=== PATIENT | male | born 1980 | race Caucasian/White ===

== ENCOUNTER 2017-03-29 15:45 | Emergency (ER) | payer MEDICAID ==
[2017-03-29 15:52] VITALS: BP 156/82
[2017-03-29] MEDS ORDERED: ONDANSETRON 4 MG TAB.RAPDIS PO ONE (17:17)
[2017-03-29] MEDS ORDERED: MORPHINE SULFATE 10 MG/ML INJ IM ONE (17:17)
--- NOTE | 2017-03-29 17:35 | ER Document Report ---
ED Neck/Back Problem - General Chief Complaint: Low Back Pain Stated Complaint: BACK PAIN Time Seen by Provider: 03/29/17 17:09 Notes: 36 yo healthy male c/o mid back pain x 1 week. no trauma. no radiculopathy or paresthesias. no bowel/bladder change. no fever. no recent injections or tattoos. no hx/o cancer. pt does c/o mild testicular pain since back pain started, but no urinary difficulty TRAVEL OUTSIDE OF THE [place] IN LAST 30 DAYS: No - HPI Patient complains to provider of: No: Injury Onset: Last week Timing: Constant Quality of pain: Sharp Pain Level: 5 Recent injury: No Associated symptoms: denies: Fever, Numbness/tingling, Radiation to arm, Radiation to chest, Radiation to leg, Unable to urinate Exacerbated by: Movement of trunk Relieved by: Nothing Similar symptoms previously: No - Related Data Allergies/Adverse Reactions: No Known Allergies Allergy (Verified 03/29/17 15:48) Past Medical History - General Information source: Patient - Social History Smoking Status: Current Every Day Smoker Chew tobacco use (# tins/day): No Frequency of alcohol use: None Drug Abuse: None Lives with: Family Family History: None Patient has suicidal ideation: No Patient has homicidal ideation: No - Medical History Medical History: Negative Renal/ Medical History: Denies: Hx Peritoneal Dialysis Surgical Hx: Negative - Immunizations Hx Diphtheria, Pertussis, Tetanus Vaccination: Yes Review of Systems - Review of Systems Constitutional: No symptoms reported EENT: No symptoms reported Cardiovascular: No symptoms reported Respiratory: No symptoms reported Gastrointestinal: No symptoms reported Genitourinary: No symptoms reported Male Genitourinary: No symptoms reported Musculoskeletal: Back pain Skin: No symptoms reported Hematologic/Lymphatic: No symptoms reported Neurological/Psychological: No symptoms reported Physical Exam - Vital signs Vitals: Temp Pulse Resp BP Pulse Ox 97.8 F 87 18 156/82 H 98 03/29/17 15:51 03/29/17 15:51 03/29/17 15:51 03/29/17 15:51 03/29/17 15:51 Interpretation: Normal - General General appearance: Appears well, Alert In distress: None - HEENT Head: Normocephalic, Atraumatic Eyes: Normal Pupils: PERRL - Respiratory Respiratory status: No respiratory distress Chest status: Nontender Breath sounds: Normal Chest palpation: Normal - Cardiovascular Rhythm: Regular Heart sounds: Normal auscultation Murmur: No - Abdominal Inspection: Normal Distension: No distension Bowel sounds: Normal Tenderness: Nontender Organomegaly: No organomegaly - Genitourinary Inspection: Normal Tenderness: Testicle tender, Epididymis tender - mild - Back Back: Tender - mid thoracic spinal and paraspinal tenderness. neg SLT, neg heel /toe - Extremities General upper extremity: Normal inspection, Nontender, Normal color, Normal ROM , Normal temperature General lower extremity: Normal inspection, Nontender, Normal color, Normal ROM , Normal temperature, Normal weight bearing. No: Mac's sign - Neurological Neuro grossly intact: Yes Cognition: Normal Orientation: AAOx4 [place] Coma Scale Eye Opening: Spontaneous [place] Coma Scale Verbal: Oriented Jamie Coma Scale Motor: Obeys Commands Jamie Coma Scale Total: 15 Speech: Normal Motor strength normal: LUE, RUE, LLE, RLE Sensory: Normal - Psychological Associated symptoms: Normal affect, Normal mood - Skin Skin Temperature: Warm Skin Moisture: Dry Skin Color: Normal Course - Re-evaluation Re-evalutation: 03/29/17 17:38 low suspicion for cuada equina or epidural abscess. discussed with Dr Sanchez, agrees pt has low risk profile and MRI not emergently indicated due to testicular discomfort, i will ultrasound scrotum and check urinalysis. 03/29/17 18:50 urinalysis negative. feeling better after medication. walks without difficulty 03/29/17 18:51 testicular US showing left hydrocele. results reviewed with patient. will DC home with pain meds and out patient follow up with primary care. discussed s/s to return to ER. pt agreeable with plan and stable for discharge - Vital Signs Vital signs: Temp Pulse Resp BP Pulse Ox 97.8 F 87 18 156/82 H 98 03/29/17 15:51 03/29/17 15:51 03/29/17 15:51 03/29/17 15:51 03/29/17 15:51 Discharge - Discharge Clinical Impression: Mid back pain Condition: Stable Disposition: HOME, SELF-CARE Instructions: Ice Packs ([facility]), Warm Packs ([facility]), Oral Narcotic Medication ([facility]) , Low Back Pain ([facility]), Pain Medication Injection ([facility]), Muscle Relaxers ([facility]) Additional Instructions: Take medications as prescribed Follow up with primary care if pain persists Return to ER for any worsening Your urinalysis and US were normal today Prescriptions: Methocarbamol [Robaxin 500 Mg Tablet] 1,000 mg PO Q6 #30 tablet Oxycodone HCl/Acetaminophen [Percocet 5-325 mg Tablet] 1 - 2 tab PO ASDIR PRN # 25 tablet PRN Reason:
[2017-03-29 18:01] LABS: APPEARANCE,URINE CLEAR; BILIRUBIN,URINE NEGATIVE (NEGATIVE); GLUCOSE, URINE NEGATIVE (NEGATIVE); KETONES,URINE NEGATIVE (NEGATIVE); LEUKOCYTE ESTERASE,URINE NEGATIVE (NEGATIVE); NITRITE,URINE NEGATIVE (NEGATIVE); PROTEIN,URINE NEGATIVE (NEGATIVE); URINE SPECIFIC GRAVITY 1.016; UROBILINOGEN,URINE NEGATIVE mg/dL (<2.0)
--- NOTE | 2017-03-29 18:49 | RADIOLOGY REPORT (SQ) ---
EXAM DESCRIPTION: U/S SCROTUM W/DOPPLER COMPLETED DATE/TIME: 03/29/2017 6:36 pm REASON FOR STUDY: testicular pain COMPARISON: None. TECHNIQUE: Static and realtime batista scale imaging of the scrotum and testes. Selected color Doppler and spectral images recorded to document blood flow. LIMITATIONS: None. FINDINGS: RIGHT: TESTICLE: Normal size. Normal echotexture. Normal blood flow. No mass. EPIDIDYMIS: Normal. HYDROCELE OR VARICOCELE: No. HERNIA OR EXTRA-TESTICULAR MASS: No. OTHER: No other significant finding. LEFT: TESTICLE: Normal size. Normal echotexture. Normal blood flow. No mass. EPIDIDYMIS: Normal. HYDROCELE OR VARICOCELE: 1.6 cm hydrocele containing debris. HERNIA OR EXTRA-TESTICULAR MASS: No. OTHER: No other significant finding. IMPRESSION: No testicular mass. Normal vascular flow to the testicles. Left-sided hydrocele containing debris. TECHNICAL DOCUMENTATION: JOB ID: [id number] [employer]- All Rights Reserved
== END 2017-03-29 20:34 | disposition home or self-care (01) ==
LOC: ER 15:45
DX: M54.9 Dorsalgia, unspecified (principal); M54.5 Low back pain; F17.200 Nicotine dependence, unspecified, uncomplicated
CPT/HCPCS: 99284; 96372; 81001; 76870; 93976; S0119; J2270

== ENCOUNTER 2017-04-26 18:54 | Emergency (ER) | payer MEDICAID ==
--- NOTE | 2017-04-26 21:42 | RADIOLOGY REPORT (SQ) ---
EXAM DESCRIPTION: FOOT RIGHT COMPLETE COMPLETED DATE/TIME: 04/26/2017 9:34 pm REASON FOR STUDY: pain COMPARISON: None. NUMBER OF VIEWS: Three views. TECHNIQUE: AP, lateral and oblique radiographic images acquired of the right foot. LIMITATIONS: None. FINDINGS: MINERALIZATION: Normal. BONES: No acute fracture or dislocation. No worrisome bone lesions. JOINTS: No effusions. SOFT TISSUES: No soft tissue swelling. No foreign body. OTHER: No other significant finding. IMPRESSION: NEGATIVE STUDY OF THE RIGHT FOOT. NO RADIOGRAPHIC EVIDENCE OF ACUTE INJURY. TECHNICAL DOCUMENTATION: JOB ID: [id number] [employer]- All Rights Reserved
[2017-04-26] MEDS ORDERED: METHYLPREDNISOLONE INJ 125 MG/2 ML SDV IM ONE (21:52)
--- NOTE | 2017-04-26 21:58 | ER Document Report ---
HPI - HPI Pain Level: 5 Notes: Patient is a 36-year-old male with no significant past medical history presents to the ED complaining of right ankle and foot pain 2-3 days. Patient states that it just started hurting without any known injury or etiology. The pain does not radiate proximally but stays in the ankle and foot. Patient states that is very sensitive to the light touch and that he has some pain with ambulation. Patient has not noticed any skin color changes, ecchymosis, or erythema. The pain is primarily to his ankle joint. Nothing seems to have helped the pain. Denies any drug allergies, daily medications. Patient does smoke but denies any illicit drug use. Upon further questioning he was also found that patient has a strong family history of gout in his siblings and parents. Patient has never been diagnosed, but he also does not have a PCM. Denies any fever, headache, URI, sore throat, chest pain, palpitations, syncope , cough, wheeze, shortness of breath, dyspnea, abdominal pain, nausea/vomiting/ diarrhea, dysuria, urinary retention, loss control bowel or bladder, muscle paralysis/weakness, or rash. - ROS Notes: REVIEW OF SYSTEMS: CONSTITUTIONAL : Denies fever, chills, or sweats. Denies recent illness. EENT: Denies eye, ear, throat, or mouth pain or symptoms. Denies nasal or sinus congestion or discharge. Denies throat, tongue, or mouth swelling or difficulty swallowing. CARDIOVASCULAR: Denies chest pain. Denies palpitations or racing or irregular heart beat. Denies ankle edema. RESPIRATORY: Denies cough, cold, or chest congestion. Denies shortness of breath, difficulty breathing, or wheezing. GASTROINTESTINAL: Denies abdominal pain or distention. Denies nausea, vomiting , or diarrhea. Denies blood in vomitus, stools, or per rectum. Denies black, tarry stools. Denies constipation. GENITOURINARY: Denies difficulty urinating, painful urination, burning, frequency, blood in urine, or discharge. MUSCULOSKELETAL: see hpi SKIN: Denies rash, lesions or sores. HEMATOLOGIC : Denies easy bruising or bleeding. LYMPHATIC: Denies swollen, enlarged glands. NEUROLOGICAL: Denies confusion or altered mental status. Denies passing out or loss of consciousness. Denies dizziness or lightheadedness. Denies headache. Denies weakness or paralysis or loss of use of either side. Denies problems with gait or speech. Denies sensory loss, numbness, or tingling. ALL OTHER SYSTEMS REVIEWED AND NEGATIVE. Dictation was performed using [employer] voice recognition software - DERM Skin Color: Normal Past Medical History - Social History Smoking Status: Current Every Day Smoker Family History: Other - gout Patient has suicidal ideation: No Patient has homicidal ideation: No Renal/ Medical History: Denies: Hx Peritoneal Dialysis - Immunizations Hx Diphtheria, Pertussis, Tetanus Vaccination: Yes Vertical Provider Document - CONSTITUTIONAL Agree With Documented VS: Yes Notes: PHYSICAL EXAMINATION: GENERAL: Well-appearing, well-nourished and in no acute distress. LUNGS: Breath sounds clear to auscultation bilaterally and equal. No wheezes rales or rhonchi. HEART: Regular rate and rhythm without murmurs, rubs, gallops. Musculoskeletal: Rt ankle/foot: + mild swelling to the med/lat ankles. No erythema, inflammation. Min. warm compared to left. + tenderness to light palp of the ankles/foot. Ligamentous stable. Mac negative. FROM to passive/ active, but pt does not like to move his foot around. N/V intact distal. Extremities: No cyanosis, clubbing, or edema b/l. Peripheral pulses 2+ b/l LE. Capillary refill less than 2 seconds. NEUROLOGICAL: Cranial nerves grossly intact. Normal speech, normal gait. Normal sensory, motor exams PSYCH: Normal mood, normal affect. SKIN: Warm, Dry, normal turgor, no rashes or lesions noted. - INFECTION CONTROL TRAVEL OUTSIDE OF THE [place] IN LAST 30 DAYS: No - RESPIRATORY O2 Sat by Pulse Oximetry: 98 Course - Re-evaluation Re-evalutation: 04/26/17 21:56 Patient is an afebrile, well-hydrated, 36-year-old male presents the ED with right ankle and foot pain, suspect gout based on H&P. Vitals are stable. PE otherwise unremarkable. X-ray was negative for any acute pathology. With patient's family history, presentation, and sensitivity to even light touch with no known etiology, I have a strong suspicion for gout. No signs that would lead me to a septic joint or cellulitis at this time; although, it is still in the differential. Solu-Medrol 125 mg given IM today. I will send him home with indomethacin to take as directed along with the use of crutches. Pt declined any irene-wrap/brace. Recheck with and establish with a PCM this week. Return to the ED with any worsening/concerning symptoms as reviewed in discharge. Patient is in agreement. - Vital Signs Vital signs: Temp Pulse Resp BP Pulse Ox 98.4 F 81 16 135/81 H 98 04/26/17 18:58 04/26/17 18:58 04/26/17 18:58 04/26/17 18:58 04/26/17 18:58 Discharge - Discharge Clinical Impression: Pain, joint, ankle and foot Qualifiers: Laterality: right Qualified Code(s): M25.571 - Pain in right ankle and joints of right foot Condition: Stable Disposition: HOME, SELF-CARE Instructions: Gout ([facility]), Gout Diet ([facility]) Additional Instructions: Rest, Ice, Compression, Elevation Use crutches as directed Tylenol/ibuprofen as needed Take indomethacin as directed Light stretches daily Strength exercises as able Moist heat and massage may help F/u with your PCP/Establish this week for a recheck Consider consult(s) with Orthopedics/podiatry for ongoing/worsening symptoms Return to the ED with any worsening pain/swelling, numbness/tingling, muscle weakness/paralysis, redness, red streaks, purulent discharge, calf pain, development of fever, any other worsening/concerning symptoms otherwise as needed. Prescriptions: Indomethacin [Indocin 50 mg Capsule] 50 mg PO TID #15 capsule Referrals: [facility] [Provider Group] - Follow up as needed
[2017-04-26 22:18] VITALS: BP 121/80
== END 2017-04-26 22:19 | disposition home or self-care (01) ==
LOC: ER 18:54
DX: M25.571 Pain in right ankle and joints of right foot (principal); M25.471 Effusion, right ankle; F17.200 Nicotine dependence, unspecified, uncomplicated; Z82.69 Family history of other diseases of the musculoskeletal system and connective tissue
CPT/HCPCS: 99283; 96372; 73630; J2930